=== PATIENT | male | born 1960 | race Caucasian/White ===

== ENCOUNTER 2019-12-09 01:00 | Inpatient (IN) | payer OTHER ==
[2019-12-09 02:31] LABS: SARS-CoV-2 NAA Rapid Test DETECTED (NotDetected)
--- NOTE | 2019-12-09 02:55 | PDOC.HHP ---
Hospitalist HPI - History of Present Illness Difficulty eating and swallowing History of Present Illness: The patient is a 59-year-old male who was transferred to our facility from [facility] with a diagnosis of a lingual tumor. 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 He has had increasing pain to the right side and left side of his neck over the past month. Over the past few days he has been unable to swallow due to the pain. He denies any fever, cough, shortness of breath. He was diagnosed with COVID approximately 3 weeks ago but has been asymptomatic. Denies difficulty breathing at this time. Unable to maintain secretions at this time. Patient states he has not been able to eat in 3 days. ED Course: In the ER they completed a COVID swab and gave 1 L of normal saline.No other medications were administered. Prior to transfer he had a CT scan done that showed a malignant tumor to the left lingual tonsil with areas of necrosis. CBC and comp met were reported as normal. Also prior to arrival patient received 12 mg of morphine, 75 mcg fentanyl, vancomycin, Zosyn, and Decadron. There is a note stating they were unable to intubate due to swelling. Hospitalist ROS - Review of Systems Constitutional: denies: fever, chills, sweats, weakness, malaise, other Eyes: denies: pain, vision change, conjunctivae inflammation, eyelid inflammation, redness, other ENT: reports: throat pain, throat swelling Respiratory: denies: cough, dry, shortness of breath, hemoptysis, SOB with excertion, pleuritic pain, sputum, wheezing, other Cardiovascular: denies: chest pain, palpitations, orthopnea, paroxysmal noc. dyspnea, edema, light headedness, other Gastrointestinal: denies: nausea, vomiting, abdominal pain, diarrhea, constipation, melena, hematochezia, other Genitourinary: denies: dysuria, frequency, incontinence, hematuria, retention, other Musculoskeletal: denies: neck pain, shoulder pain, arm pain, back pain, hand pain, leg pain, foot pain, other Skin: denies: rash, lesions, leroy, bruising, other Neurological: denies: weakness, numbness, incoordination, change in speech, confusion, seizures, other All other systems reviewed; all pertinent +/- noted in HPI/Subj - Medication Medications: Allergies: Sulfa Current medications: Metoprolol tartrate 100 mg daily Hospitalist History - Past Medical History Source: patient Cardiac: reports: HTN Pulmonary: reports: asthma Hepatobiliary: reports: Hep A/B/C - Past Surgical History Past Surgical History: reports: Other (Oral surgery) - Family History Family History: reports: cancer - Social History Smoking Status: Never smoker Alcohol: reports: None Drugs: reports: none Living Situation: Other (Inmate) Other Social History: Patient has been incarcerated for over 30 years - Exam General Appearance: NAD General - other findings: VS: 147/105, P 91, respiratory 18, temp 98.1, 96% room air Eye: PERRL ENT: normocephalic atraumatic, moist mucosa Neck: supple Neck - other findings: Bilateral tender enlarged submandibular lymph nodes Heart: RRR, no murmur, no gallops, no rubs Respiratory: CTAB, no wheezes, no rales, no ronchi Gastrointestinal: soft, non-tender, non-distended, normal bowel sounds Extremities: no cyanosis, no clubbing Psychiatric: normal affect, normal behavior Hospitalist H&P A/P - Plan Plan: Lingual tumor Able to maintain airway at this time been unable to maintain secretions, suction arranged at bedside ENT consult in a.m. Lidocaine swish and spit IV PRN pain medications Dysphagia IV fluids Speech therapy consult Slight COVID-19 Restart home medications when able to swallow, can use IV substitutes at this time Vital signs currently stable Vital signs at the beginning of shift and as needed COVID-19 Asymptomatic Droplet and airborne precautions CODE STATUS: Full Patient was discussed with Dr. Harvey
[2019-12-09] MEDS ORDERED: Lidocaine Viscous Sol 2% 15 ml UD Cup SSP PRN (03:05)
[2019-12-09] MEDS ORDERED: Ondansetron PF 4 MG/2 ML Vial IVP PRN (03:05)
[2019-12-09] MEDS ORDERED: Dextrose 5 % And 0.9 % NaCl 1,000 ML IV SCH (03:15)
[2019-12-09] MEDS: Morphine 2 MG/ML VIAL SLOW IVP PRN ×4 (04:01→23:29)
[2019-12-09 04:18] VITALS: BMI 27.8
[2019-12-09 05:58] LABS: #Basophils 0.1 thou/uL (0.0-0.2); #Lymphocytes 0.5 thou/uL (1.20-3.40); #Monocytes 0.2 thou/uL (0.11-0.59); %Basophils 0.5 % (0.0-1.0); %Eosinophils 0.2 % (0.0-10.0); %Lymphocytes 4.6 % (21.0-51.0); %Monocytes 2.4 % (0.0-10.0); %Neutrophils 92.3 % (42.0-75.0); Hemoglobin 13.6 g/dL (14.0-18.0); Mean Corpuscular HGB CONC 32.7 g/dL (32.0-36.0); Mean Corpuscular Hemoglobin 30.4 pg (27.0-31.0); Mean Corpuscular Volume 92.9 fL (78.0-98.0); Mean Platelet Volume 8.8 fL (7.4-10.4); Platelet Count 151 thou/uL (130-400); RBC Distribution Width 11.6 % (11.5-14.5); Red Blood Cell (RBC) Count 4.47 mill/uL (4.70-6.10); White Blood Cell (WBC) Count 9.8 thou/uL (4.8-10.8)
[2019-12-09 06:14] LABS: Anion Gap 10 mmol/L (10-20); BUN (Urea Nitrogen) 11 mg/dL (8.4-25.7); Calc. Creatinine Clearance 95 mL/min (70-130); Calcium 8.3 mg/dL (7.8-10.44); Carbon Dioxide 26 mmol/L (22-29); Chloride 107 mmol/L (98-107); Estimated GFR-MDRD 76; Glucose 151 mg/dL (70-105); Potassium 4.3 mmol/L (3.5-5.1); Sodium 139 mmol/L (136-145)
[2019-12-09] MEDS: Famotidine/PF 20 mg/2ml Vial SLOW IVP SCH ×2 (07:51→19:27)
[2019-12-09] MEDS: AA 4.25 %/CALCIUM/LYTES/D5W (PPN) 2,000 ML BAG IV SCH (09:53)
[2019-12-09] MEDS: Dextrose 5 % And 0.9 % NaCl 1,000 ML IV SCH ×2 (09:54→19:31)
[2019-12-09] MEDS: hydrALAZINE 20 MG/ML VIAL SLOW IVP PRN (23:47)
[2019-12-10] MEDS ORDERED: Aluminum & Magnesium Hydroxide 60 ML, Lidocaine 2% Viscous Solution 30 ML, diphenhydrAM... SSW PRN (00:56)
[2019-12-10] MEDS ORDERED: Fentanyl 100 MCG/2 ML VIAL SLOW IVP SCH (00:57)
[2019-12-10] MEDS ORDERED: ALPRAZolam 0.5 MG TAB PO SCH (01:00)
[2019-12-10] MEDS ORDERED: Chloraseptic Spray 180 ml Bottle PO PRN (01:18)
[2019-12-10] MEDS ORDERED: Lorazepam 2 MG/ML VIAL SLOW IVP PRN (01:18)
[2019-12-10 05:45] LABS: #Lymphocytes 0.5 thou/uL (1.20-3.40); #Neutrophils 9.7 thou/uL (1.40-6.50); %Basophils 0.1 % (0.0-1.0); %Eosinophils 0.1 % (0.0-10.0); %Lymphocytes 4.5 % (21.0-51.0); %Monocytes 9.2 % (0.0-10.0); Hemoglobin 13.9 g/dL (14.0-18.0); Mean Corpuscular HGB CONC 32.4 g/dL (32.0-36.0); Mean Corpuscular Hemoglobin 29.9 pg (27.0-31.0); Mean Corpuscular Volume 92.1 fL (78.0-98.0); Platelet Count 157 thou/uL (130-400); RBC Distribution Width 11.3 % (11.5-14.5); Red Blood Cell (RBC) Count 4.64 mill/uL (4.70-6.10); White Blood Cell (WBC) Count 11.3 thou/uL (4.8-10.8)
[2019-12-10 06:06] LABS: Anion Gap 13 mmol/L (10-20); BUN (Urea Nitrogen) 14 mg/dL (8.4-25.7); Calc. Creatinine Clearance 109 mL/min (70-130); Calcium 8.4 mg/dL (7.8-10.44); Carbon Dioxide 24 mmol/L (22-29); Chloride 105 mmol/L (98-107); Estimated GFR-MDRD 89; Glucose 119 mg/dL (70-105); Potassium 3.8 mmol/L (3.5-5.1); Sodium 138 mmol/L (136-145)
[2019-12-10] MEDS: Famotidine/PF 20 mg/2ml Vial SLOW IVP SCH ×2 (08:06→20:06)
[2019-12-10] MEDS ORDERED: Iopamidol-370 76% 500 ML 1 ML ONE (10:30)
[2019-12-10] MEDS ORDERED: Lidocaine 1% w/Epinephrine 1:100K 20 ML VIAL ONE (11:01)
--- NOTE | 2019-12-10 11:17 | CT ---
CT neck soft tissues with contrast: DATE: 12/10/2019 HISTORY: 59-year-old male with "lingual tumor and dysphagia." COMPARISON: 12/08/2019 from [facility] FINDINGS: Again noted is the large, infiltrative neoplastic tumor mass involving the lingual tonsil, base of to ngue, which contiguously involves the vallecula and anterosuperior surface of epiglottis. It complex shape extending into different corners and crevices makes it difficult to measure. Measuremen ts were given on previous report regarding the largest, exophytic component arising from the lingual tonsil into the oropharynx, significantly narrowing the oropharyngeal airway. The complex irregularly-shaped fluid collection with septations, in the posterior aspect of the left sublingual space, with irregular, enhancing kaye, has grown somewhat. The most posterior component currently measures approximately 3 x 3.5 x 2.5 cm. It has an anteriorly extending triangular process that measures approximately 1.5 x 3.5 x 1.5 cm. The left calcified stylohyoid ligament passes through this complex fluid collection. Again noted are the multiple low density cervical lymph nodes consistent with necrotic metastatic nod es, including bilateral pre jugular and retrojugular level 2 nodes, and right level 3 node. No left level 2 retrojugular node is approximately 1.8 x 1.6 x 2.9 cm. Cystic metastatic right level 3 node i s approximately 1.5 x 1.2 x 1.8 cm. Directly posterior to that, there is a noncystic right level 3 node measuring 1.2 x 0.9 x 1.8 cm. Left pre jugular level 2A node with central necrosis is 1.4 x 1.4 x 1.8 cm. Its counterpart on the right is 1.6 x 1.5 x 2.6 cm. Other than a small mucous retention cyst in the right maxillary sinus, the paranasal sinuses are hoda r. Middle ear cavities and mastoid antra are bilaterally clear. 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 Narrowing of oropharyngeal airway. 2.) Necrotic bilateral metastatic cervical lymphadenopathy, bilateral levels 2 and right level 3. 3) interval growth of the complex, rim-enhancing fluid collection at the posterior aspect of left sub lingual space. The rapid interval growth is more suggestive of abscess than necrotic tumor.
[2019-12-10] MEDS: Dextrose 5 % And 0.9 % NaCl 1,000 ML IV SCH (12:15)
[2019-12-10] MEDS: AA 4.25 %/CALCIUM/LYTES/D5W (PPN) 2,000 ML BAG IV SCH (12:54)
[2019-12-10] MEDS: Morphine 2 MG/ML VIAL SLOW IVP PRN (12:54)
[2019-12-10] MEDS ORDERED: Morphine 4 MG/ML VIAL SLOW IVP PRN (16:06)
--- NOTE | 2019-12-10 16:07 | PDOC.HOSPP ---
- Subjective Encounter Date: 12/10/19 Encounter Time: 12:30 Subjective: pt up in bed is having trouble swallowing. ENT at bedside. - Objective Vital Signs & Weight: Vital Signs (12 hours) Temp Pulse Resp BP Pulse Ox 12/10/19 08:10 99.0 F 70 18 138/85 96 12/10/19 08:00 96 12/10/19 04:24 98.9 F 77 16 126/71 97 Weight Weight 182 lb 15.739 oz I&O: 12/09/19 12/10/19 12/11/19 06:59 06:59 06:59 Intake Total 2914 Output Total 1700 Balance 1214 Result Diagrams: 12/10/19 05:23 12/10/19 05:23 Hospitalist ROS - Review of Systems Cardiovascular: denies: chest pain, palpitations, orthopnea, paroxysmal noc. dyspnea, edema, light headedness, other Gastrointestinal: denies: nausea, vomiting, abdominal pain, diarrhea, constipation, melena, hematochezia, other - Medication Medications: Active Medications Generic Name Dose Route Start Last Admin Trade Name Freq PRN Reason Stop Dose Admin Famotidine 20 mg 12/09/19 09:00 12/10/19 08:06 Pepcid SLOW IVP 20 mg Q12HR REDDY Administration Hydralazine HCl 5 mg 12/09/19 10:27 12/09/19 23:47 Apresoline SLOW IVP 5 mg Q6H PRN Administration sbp >180 Dextrose/Sodium Chloride 1,000 mls @ 75 mls/hr 12/09/19 08:45 12/10/19 12:15 D5 0.9% Ns IV Not Given .[id number] REDDY Lorazepam 1 mg 12/10/19 01:18 12/10/19 01:32 Ativan SLOW IVP 1 mg Q4H PRN Administration Anxiety/Agitation Morphine Sulfate 2 mg 12/09/19 03:17 12/10/19 12:54 Morphine SLOW IVP 2 mg Q4H PRN Administration Pain Sodium Chloride 10 ml 12/09/19 03:33 12/09/19 09:53 Flush - Normal Saline IVF 10 ml PRN PRN Administration Saline Flush - Exam Neck: negative: supple, symmetric, no JVD, no thyromegaly, no lymphadenopathy, no carotid bruit, JVD Heart: negative: RRR, no murmur, no gallops, no rubs, normal peripheral pulses, irregular, diminshed peripheral pulses, murmur present, II/IV, III/IV Respiratory: negative: CTAB, no wheezes, no rales, no ronchi, normal chest expansion, no tachypnea, normal percussion, rales, rhonchi, tachypneic, wheezes Gastrointestinal: negative: soft, non-tender, non-distended, normal bowel sounds , no palpable masses, no hepatomegaly, no splenomegaly, no bruit, no guarding, no rigidity, tender to palpation, distended, diminished bowl sounds, voluntary guarding Hosp A/P (1) Dysphagia Code(s): R13.10 - DYSPHAGIA, UNSPECIFIED Status: Acute (2) Lingual tonsil carcinoma Code(s): C02.4 - MALIGNANT NEOPLASM OF LINGUAL TONSIL Status: Acute (3) HTN (hypertension) Code(s): I10 - ESSENTIAL (PRIMARY) HYPERTENSION Status: Acute - Plan pt states that he has been dx in 2019 but no tissue biopsy. will get records. Also he had a bedside biopsy. Oncology at our facility does not have a contract with them and will not do chemo. will get peg tube placed since he is unable to eat. He is on ppn. will start pt on fentanyl patch and prn morphine.
[2019-12-11] MEDS: Dextrose 5 % And 0.9 % NaCl 1,000 ML IV SCH ×2 (01:28→17:54)
--- NOTE | 2019-12-11 01:43 | CON ---
DATE OF CONSULTATION: 12/10/2019 CHIEF COMPLAINT: Trouble swallowing. HISTORY OF PRESENT ILLNESS: Mr. Montalvo is a 59-year-old man who was a state detention inmate, who presented with pain in his neck and progressive inability to swallow due to the pain. He had a CT scan that showed a mass or tumor on the tongue with metastatic lesions to the cervical lymph nodes. GI was consulted to evaluate for PEG tube placement due to his inability to swallow. He has had no nausea or vomiting or abdominal pain. No diarrhea, constipation, or blood in the stool. He has had no prior endoscopy. He was diagnosed with COVID three weeks ago, but was asymptomatic. His COVID swab is still positive. PAST MEDICAL HISTORY: Hypertension, asthma, and viral hepatitis. PAST SURGICAL HISTORY: Some type of oral surgery. FAMILY HISTORY: Negative for GI malignancy. SOCIAL HISTORY: No alcohol, tobacco, or drugs. He is an inmate. ALLERGIES: SULFA. MEDICATIONS: Prior to admission, metoprolol. Current inpatient medications include fentanyl patch and Pepcid and morphine as needed. REVIEW OF SYSTEMS: Negative x10 systems reviewed except as stated in the history of present illness. PHYSICAL EXAMINATION: VITAL SIGNS: Temperature 99.0, pulse 90, and blood pressure 155/100. GENERAL: He is in no acute distress. Alert and oriented x3. HEENT: Eyes have no scleral icterus. Oropharynx is clear. He has a biopsy by ENT today of his submandibular lymph nodes. LUNGS: Clear to auscultation bilaterally. HEART: Regular rate and rhythm without murmur. ABDOMEN: Soft, nontender, and nondistended. Bowel sounds are present. No scars over the left upper quadrant of the abdomen. EXTREMITIES: No lower extremity edema. LABORATORY DATA: White blood cell count 11.3, hemoglobin 13.9, platelets 157. Creatinine 0.8. IMPRESSION: 1. Oropharyngeal dysphagia. 2. Cancer of the tongue and possible associated abscess and necrotic lymph nodes followed by ENT. RECOMMENDATIONS: We will plan for EGD with percutaneous endoscopic gastrostomy tube placement tomorrow. Preprocedure antibiotics. Job ID: [id number]
[2019-12-11 06:25] LABS: #Eosinphils 0.1 thou/uL (0.0-0.7); #Lymphocytes 0.5 thou/uL (1.20-3.40); #Monocytes 0.7 thou/uL (0.11-0.59); #Neutrophils 4.2 thou/uL (1.40-6.50); %Basophils 0.3 % (0.0-1.0); %Lymphocytes 9.9 % (21.0-51.0); %Monocytes 12.5 % (0.0-10.0); %Neutrophils 76.3 % (42.0-75.0); Hemoglobin 13.9 g/dL (14.0-18.0); Mean Corpuscular Hemoglobin 31.1 pg (27.0-31.0); Mean Corpuscular Volume 91.7 fL (78.0-98.0); Mean Platelet Volume 8.9 fL (7.4-10.4); Platelet Count 144 thou/uL (130-400); RBC Distribution Width 11.3 % (11.5-14.5); Red Blood Cell (RBC) Count 4.45 mill/uL (4.70-6.10); White Blood Cell (WBC) Count 5.5 thou/uL (4.8-10.8)
[2019-12-11 06:48] LABS: Anion Gap 10 mmol/L (10-20); BUN (Urea Nitrogen) 12 mg/dL (8.4-25.7); Calc. Creatinine Clearance 121 mL/min (70-130); Carbon Dioxide 26 mmol/L (22-29); Chloride 105 mmol/L (98-107); Potassium 3.7 mmol/L (3.5-5.1); Sodium 137 mmol/L (136-145)
[2019-12-11 06:49] LABS: Calcium 8.5 mg/dL (7.8-10.44); Estimated GFR-MDRD Greater than 90; Glucose 109 mg/dL (70-105)
[2019-12-11] MEDS: Famotidine/PF 20 mg/2ml Vial SLOW IVP SCH ×2 (08:48→21:03)
[2019-12-11] MEDS ORDERED: Ondansetron PF 4 MG/2 ML Vial ONE (11:19)
[2019-12-11] MEDS ORDERED: Rocuronium Bromide 10 MG/ML (10ML VIAL) ONE (11:19)
[2019-12-11] MEDS ORDERED: PHENYLEPHRINE-NS 100 MCG/ML 10 ML SYRINGE ONE (11:19)
[2019-12-11] MEDS ORDERED: Glycopyrrolate 0.2 MG/ML 5 ML SYRINGE ONE (11:19)
[2019-12-11] MEDS ORDERED: PROPOFOL 200 MG/20 ML VIAL ONE (11:19)
[2019-12-11] MEDS ORDERED: Dexamethasone 20 MG/5 ML VIAL ONE (11:19)
[2019-12-11] MEDS: hydrALAZINE 20 MG/ML VIAL SLOW IVP PRN (13:12)
[2019-12-11 13:20] VITALS: BP 166/125
[2019-12-11] MEDS: AA 4.25 %/CALCIUM/LYTES/D5W (PPN) 2,000 ML BAG IV SCH (13:31)
[2019-12-11] MEDS ORDERED: SUGAMMADEX SODIUM 200 MG/2 ML VIAL ONE (14:09)
[2019-12-11] MEDS ORDERED: Ketamine 50 MG/ML (10ML VIAL) ONE (14:16)
[2019-12-11 16:14] LABS: Actual Bicarbonate (HCO3a) 24.7 mEq/L (22-28); Base Excess (BEa) -0.3 mEq/L (-2.0 to +3.0); CO2 Tension 41.4 mmHg (35.0-45.0); Calcium, Ionized (arterial) 1.13 mmol/L (1.12-1.30); Carboxyhemoglobin (COHb) 0.2 gm% (0.0-3.0); Hemoglobin (Hb) 13.5 g/dL (14.0-18.0); O2 Tension (PaO2), arterial 86.3 mmHg (80.0-100.0); Potassium - ABG Lab 3.63 mmol/L (3.70-5.30); pH, Arterial 7.39 (7.35-7.45)
[2019-12-11] MEDS ORDERED: Propofol 1,000 MG/100 ML VIAL IV ONE (16:21)
[2019-12-11] MEDS ORDERED: Lorazepam 2 MG/ML VIAL SLOW IVP PRN (16:30)
[2019-12-11] MEDS ORDERED: DISCONTINUE PREVIOUS NARCOTIC PAIN MEDICATIONS AND BENZODIAZEPINES FS SCH (16:30)
[2019-12-11] MEDS ORDERED: Propofol BOLUS 1,000 MG/100 ML VIAL IV PRN (16:30)
[2019-12-11] MEDS ORDERED: Morphine 2 MG/ML VIAL SLOW IVP PRN (16:30)
[2019-12-11] MEDS ORDERED: Propofol 1,000 MG/100 ML VIAL IV PRN (16:30)
[2019-12-11] MEDS ORDERED: fentaNYL Citrate/PF 2,000 MCG in Sodium Chloride 0.9% 60 ML IV SCH (16:30)
[2019-12-11] MEDS ORDERED: Fentanyl BOLUS 250 ML IVPB PRN (16:30)
[2019-12-11 16:45] LABS: Puncture Site RBRACH
[2019-12-11] MEDS ORDERED: Enalaprilat Dihydrate 1.25 MG/ML VIAL SLOW IVP PRN (17:03)
--- NOTE | 2019-12-11 17:10 | PDOC.HOSPP ---
- Subjective Encounter Date: 12/11/19 Encounter Time: 10:30 Subjective: pt up in bed states his pain is controlled. - Objective Vital Signs & Weight: Vital Signs (12 hours) Temp Pulse Resp BP BP Pulse Ox 12/11/19 16:21 120 H 12/11/19 13:12 94 166/125 H 12/11/19 08:00 98.5 F 94 18 170/109 H 96 12/11/19 05:30 98.5 F 84 18 147/100 H 96 Weight Admit Weight 182 lb 15.68 oz Weight 182 lb 15.739 oz I&O: 12/10/19 12/11/19 12/12/19 06:59 06:59 06:59 Intake Total 2914 Output Total 1700 Balance 1214 Result Diagrams: 12/11/19 06:04 12/11/19 06:04 Hospitalist ROS - Review of Systems ENT: reports: other (cervical lymphadenopathy) Cardiovascular: denies: chest pain, palpitations, orthopnea, paroxysmal noc. dyspnea, edema, light headedness, other Gastrointestinal: denies: nausea, vomiting, abdominal pain, diarrhea, constipation, melena, hematochezia, other - Medication Medications: Active Medications Generic Name Dose Route Start Last Admin Trade Name Freq PRN Reason Stop Dose Admin Famotidine 20 mg 12/09/19 09:00 12/11/19 08:48 Pepcid SLOW IVP 20 mg Q12HR REDDY Administration Hydralazine HCl 5 mg 12/09/19 10:27 12/11/19 13:12 Apresoline SLOW IVP 5 mg Q6H PRN Administration sbp >180 Dextrose/Sodium Chloride 1,000 mls @ 75 mls/hr 12/09/19 08:45 12/11/19 01:28 D5 0.9% Ns IV 1,000 mls .[id number] REDDY Administration Sodium Chloride 10 ml 12/09/19 03:33 12/09/19 09:53 Flush - Normal Saline IVF 10 ml PRN PRN Administration Saline Flush - Exam Neck: negative: supple, symmetric, no JVD, no thyromegaly, no lymphadenopathy, no carotid bruit, JVD Heart: negative: RRR, no murmur, no gallops, no rubs, normal peripheral pulses, irregular, diminshed peripheral pulses, murmur present, II/IV, III/IV Respiratory: negative: CTAB, no wheezes, no rales, no ronchi, normal chest expansion, no tachypnea, normal percussion, rales, rhonchi, tachypneic, wheezes Gastrointestinal: negative: soft, non-tender, non-distended, normal bowel sounds , no palpable masses, no hepatomegaly, no splenomegaly, no bruit, no guarding, no rigidity, tender to palpation, distended, diminished bowl sounds, voluntary guarding Hosp A/P (1) Dysphagia Code(s): R13.10 - DYSPHAGIA, UNSPECIFIED Status: Acute (2) Lingual tonsil carcinoma Code(s): C02.4 - MALIGNANT NEOPLASM OF LINGUAL TONSIL Status: Acute (3) HTN (hypertension) Code(s): I10 - ESSENTIAL (PRIMARY) HYPERTENSION Status: Acute - Plan pt states that he has been dx in 2019 but no tissue biopsy. will get records. Also he had a bedside biopsy. Oncology at our facility does not have a contract with them and will not do chemo. will get peg tube placed since he is unable to eat. He is on ppn. will start pt on fentanyl patch and prn morphine. 12/10 patient's pain is better controlled. He is going to go for PEG tube placement today. Pathology still pending. I spoke with medical personal at the nursing home who stated that he had a neck mass removed about 10 years ago which from what she can say was benign. There was recent diagnostic biopsy that was done on this patient as the patient claimed. Patient currently intubated in the ICU since he was unable to be extubated well. Is currently on steroids which we will continue. Pulmonology wanted to initiate transfer to [facility] which I have initiated. Patient will need radiation and chemotherapy started right away and I have communicated this with the medical personnel at the nursing home.
[2019-12-11] MEDS: Cefepime 1 GM in Sodium Chloride 0.9% 100 ML IVPB SCH (17:51)
[2019-12-11] MEDS: Dexamethasone 4 MG in Sodium Chloride 0.9% 50 ML IVPB SCH (21:03)
--- NOTE | 2019-12-11 22:02 | OP ---
DATE OF PROCEDURE: 12/11/2019 PROCEDURE PERFORMED: Esophagogastroduodenoscopy with percutaneous endoscopic gastrostomy tube placement. PREOPERATIVE DIAGNOSIS: Oropharyngeal dysphagia secondary to left tongue and tonsil and left neck mass. DESCRIPTION OF PROCEDURE: Informed consent was obtained from the patient. He was sedated with general anesthesia. Endotracheal intubation was difficult even with a glide scope due to the friable mass; however, the patient never dropped his oxygen saturation. The endoscope was advanced easily to the second portion of the duodenum and retroflexion was performed in the stomach. The esophagus was normal. The GE junction was normal. The stomach was normal including retroflexed views. The pylorus and first and second portions of the duodenum were normal. The appropriate site in the left upper quadrant below the left ribs was transilluminated. The site was palpated with good one-to-one motion. The patient received Ancef 2 g prior to the procedure. The skin was sterilized with chlorhexidine. The skin was anesthetized with 5 mL of 1% lidocaine. A 1 cm skin incision was performed with a scalpel. The catheter was placed through the abdominal wall into the stomach easily on one attempt. The guidewire was placed through the catheter and grasped with snare and pulled out through the patient's mouth. The 20[place] gastrostomy tube was then placed by the pull-through technique. The external bumper was placed at 4 cm. Antibiotic ointment was applied and the site was dressed. IMPRESSION: 1. Friable pharyngeal mass. 2. Normal EGD. 3. Successful placement of 20-[place]izen [place] gastrostomy tube with the external bumper at 4 cm. RECOMMENDATIONS: Start feeds in 8 hours. Job ID: [id number] [facility]
--- NOTE | 2019-12-12 00:25 | CON ---
DATE OF CONSULTATION: 12/09/2019 HISTORY OF PRESENT ILLNESS: Vito Montalvo is a 59-year-old prisoner from [place] who was admitted to the hospital on . I was called to see the patient in the emergency basis after he was taken to the operating room for a PEG secondary to dysphagia and apparently extensive carcinoma involving the tongue. I spoke to the Anesthesia. It is difficult to intubate. Post procedure, they tried to extubate and when he had a large volume of bloody secretions in the endotracheal tube, became hypoxic, he was left intubated. He was transferred to the ICU where he was paralyzed. Obviously, unable to get additional history. There is a prisoner-guard to the bedside. He is now in the ICU [place] prisoner for a while. Three weeks ago, he was diagnosed to have Nam positive serology, but apparently was asymptomatic. His CT showed as noted. PAST MEDICAL HISTORY: Otherwise, pertinent for hepatitis C, apparently asthma, obesity, hypertension. PREVIOUS SURGERIES: Apparently oral surgery. ALLERGIES: SULFA. MEDICATIONS: Includes Norvasc 10, Alvesco, atenolol 50, Flovent, lactulose, ibuprofen, Tenex, Osmolite. Otherwise, unable to get any history. PHYSICAL EXAMINATION: VITAL SIGNS: Temperature 98, blood pressure 166/124, his saturations were 96% on room air prior to his transfer for the PEG. CHEST: Rhonchi, crackles. CARDIAC: Normal S1, S2. ABDOMEN: No masses. LABORATORY DATA: White count 5000, H and H 13 and 40, platelet count is normal. Lytes are normal. IMPRESSION: Status post PEG with post intubation hemorrhage, difficult intubation because of probably a large tumor in the back of the throat. History of 3 weeks positive coronavirus, still positive. CT of neck soft tissue showing necrotic bilateral metastatic cervical lymph nodes, base of the tongue, lingular tonsils, aggressive malignant tumor. Squamous cell, apparently some kind of biopsy was performed. I do not see any chest x-ray. PLAN: Continue vent support. I discussed with the nursing staff to let the patient's primary care physician consider transfer to [place] since he is a prisoner. In the meantime, I have restarted Decadron for his throat swelling and empiric antibiotics. This is unfortunate situation. This is a 45-minute critical time. Job ID: [id number]
[2019-12-12 03:56] LABS: #Lymphocytes 0.3 thou/uL (1.20-3.40); #Monocytes 0.2 thou/uL (0.11-0.59); %Eosinophils 0.1 % (0.0-10.0); %Lymphocytes 4.4 % (21.0-51.0); %Monocytes 2.8 % (0.0-10.0); %Neutrophils 92.7 % (42.0-75.0); Hemoglobin 13.4 g/dL (14.0-18.0); Mean Corpuscular HGB CONC 34.4 g/dL (32.0-36.0); Mean Corpuscular Hemoglobin 31.8 pg (27.0-31.0); Mean Corpuscular Volume 92.4 fL (78.0-98.0); Mean Platelet Volume 9.1 fL (7.4-10.4); Platelet Count 148 thou/uL (130-400); RBC Distribution Width 11.2 % (11.5-14.5); Red Blood Cell (RBC) Count 4.23 mill/uL (4.70-6.10); White Blood Cell (WBC) Count 7.5 thou/uL (4.8-10.8)
[2019-12-12 04:22] LABS: Chloride 105 mmol/L (98-107); Glucose 129 mg/dL (70-105); Potassium 5.2 mmol/L (3.5-5.1); Sodium 132 mmol/L (136-145)
[2019-12-12] MEDS: Dextrose 5 % And 0.9 % NaCl 1,000 ML IV SCH (05:00)
[2019-12-12] MEDS: Cefepime 1 GM in Sodium Chloride 0.9% 100 ML IVPB SCH (05:00)
[2019-12-12 05:01] LABS: Anion Gap 13 mmol/L (10-20); Carbon Dioxide 20 mmol/L (22-29)
[2019-12-12 05:03] LABS: Calc. Creatinine Clearance 106 mL/min (70-130); Estimated GFR-MDRD 87
[2019-12-12 05:04] LABS: BUN (Urea Nitrogen) 19 mg/dL (8.4-25.7)
[2019-12-12 07:14] LABS: Base Excess (BEa) -5.4 mEq/L (-2.0 to +3.0); CO2 Tension 50.2 mmHg (35.0-45.0); Calcium, Ionized (arterial) 1.22 mmol/L (1.12-1.30); Carboxyhemoglobin (COHb) 0.1 gm% (0.0-3.0); Hemoglobin (Hb) 15.4 g/dL (14.0-18.0); O2 Tension (PaO2), arterial 97.4 mmHg (80.0-100.0); Potassium - ABG Lab 5.26 mmol/L (3.70-5.30); pH, Arterial 7.26 (7.35-7.45)
[2019-12-12 07:42] LABS: Puncture Site RRAD
[2019-12-12] MEDS: Dexamethasone 4 MG in Sodium Chloride 0.9% 50 ML IVPB SCH (07:52)
[2019-12-12] MEDS: Famotidine/PF 20 mg/2ml Vial SLOW IVP SCH (07:52)
[2019-12-12 08:10] VITALS: TEMP 98
--- NOTE | 2019-12-12 10:25 | RAD ---
AP CHEST: Date: 12/12/2019 INDICATION: Ventilator follow-up. COMPARISON: 12/12/2019. FINDINGS/IMPRESSION: ET tube remains in place. The lungs are well aerated. Hazy density in the medial right lung base is s table. No acute interval change. POS: AGW
--- NOTE | 2019-12-12 14:00 | DIS ---
DATE OF ADMISSION: 12/09/2019 DATE OF DISCHARGE: 12/12/2019 PRIMARY CARE PROVIDER: Judith at [facility]. DISCHARGE DIAGNOSES: 1. Dysphagia. 2. Lingual tonsillar tumor. CONDITION OF PATIENT ON THE DAY OF DISCHARGE: Stable. The patient is currently intubated in the CCU. I assessed the patient prior to discharge. HOSPITAL COURSE: Mr. Montalvo is a 59-year-old gentleman, who was admitted to [facility] on December 09, 2019 for lingual tumor causing dysphagia. He was seen by Gastroenterology Service. He underwent PEG tube placement. He will need treatment for his tumor. He is being transferred to [facility] for further management. He was intubated for the procedure and is being transported in an intubated state. FOLLOWUP: With [facility]. DIET: PEG tube feeds. ACTIVITY: As tolerated. DISCHARGE DESTINATION: [facility]. Total amount of time spent coordinating this discharge: 20 minutes. Job ID: [id number]
== END 2019-12-12 09:15 | disposition short-term general hospital (02) | DRG 146 ==
LOC: EEVIPCON 01:00 → ERS 01:00 → T4-A 01:50 → CCU 12-11 15:31
PROVIDERS: ADMIT Internal Medicine; ATTEND Internal Medicine
PROC: 8E0ZXY6 Isolation (ICD-10-PCS; 2019-12-09)
PROC: 0DH63UZ Insertion of Feeding Device into Stomach, Percutaneous Approach (ICD-10-PCS; principal; 2019-12-11)
PROC: 0W930ZX Drainage of Oral Cavity and Throat, Open Approach, Diagnostic (ICD-10-PCS; 2019-12-11)
DX: C02.4 Malignant neoplasm of lingual tonsil (principal); U07.1 COVID-19; C77.0 Secondary and unspecified malignant neoplasm of lymph nodes of head, face and neck; I10 Essential (primary) hypertension; F32.9 Major depressive disorder, single episode, unspecified; R13.12 Dysphagia, oropharyngeal phase; J45.909 Unspecified asthma, uncomplicated; Z88.2 Allergy status to sulfonamides; Z98.890 Other specified postprocedural states; C02.9 Malignant neoplasm of tongue, unspecified
CPT/HCPCS: 36415; 70491; 71045; 80048; 82805; 85025; 88173; 90471; 90732; 94002; 94003; 99285; G0009; J0360; J0692; J1100; J2060; J2270; J2405; J2704; J3010; J3490; Q0163; Q9967; S0028; U0002